=== PATIENT | male | born 1945 | race Caucasian/White ===

== ENCOUNTER 2020-01-01 07:47 | Day surgery (SDC) | payer OTHER, BC ==
[2019-12-31 15:18] VITALS: BMI 25.0
[2020-01-01 08:36] VITALS: TEMP 97.7
[2020-01-01] MEDS ORDERED: oxyCODONE HCL 5 MG TABLET PO PRN (10:34)
[2020-01-01] MEDS ORDERED: ONDANSETRON 4 MG/2 ML VIAL IVPUSH PRN (10:34)
[2020-01-01] MEDS ORDERED: MIDAZOLAM HCL 2 MG/2 ML SINGLE DOSE VIAL ONE (10:40)
[2020-01-01] MEDS ORDERED: LACTATED RINGERS SOLUTION 1,000 ML IV SCH (10:45)
[2020-01-01] MEDS ORDERED: LIDOCAINE HCL 2% (50ML VIAL) INF ONE (11:13)
[2020-01-01 12:32] VITALS: PULSE 72
[2020-01-01 12:36] VITALS: BP 134/75
--- NOTE | 2020-01-02 13:55 | HP ---
DATE OF ADMISSION: 01/01/2020 PREOPERATIVE DIAGNOSIS: Right carpal tunnel syndrome. POSTOPERATIVE DIAGNOSIS: Right carpal tunnel syndrome. OPERATIVE PROCEDURE: Right carpal tunnel release. ANESTHESIA: Local with sedation. COMPLICATIONS: None. ESTIMATED BLOOD LOSS: Minimal. INDICATION FOR PROCEDURE: The patient is a 74-year-old male with the above finding, indicated for operative treatment. Risks, benefits, and alternatives were discussed with the patient at length. Proper informed consent was obtained. PROCEDURE: After proper identification of the patient and the correct operative site, patient was brought to the operating room, placed supine on the operating table. All prominences were well padded. Sedation and local anesthesia were given. Right upper extremity was prepped and draped in usual sterile fashion. A well-padded tourniquet was placed as well as a sterile prep. Esmarch bandage to exsanguinate the right upper extremity. Tourniquet was inflated to 250 mmHg. A longitudinal incision was made in the proximal aspect of the palm. Incision was taken sharply through the skin with blunt and sharp dissection through the subcutaneous tissues. Palmar fascia was divided longitudinally. Transcarpal ligament along with the distal 4 cm of the antebrachial fascia were divided longitudinally under direct visualization with loupe magnification. This provided complete release of the median nerve at the wrist. Wound was repaired with 5-0 nylon suture. Sterile dressings were applied. Patient was brought to recovery room in stable condition. He tolerated the procedure well. EUSEBIO SAGE M.D. [id number]
== END 2020-01-01 12:15 | disposition home or self-care (01) ==
LOC: FASU 07:47
PROVIDERS: ATTEND Orthopaedic Surgery Hand Surgery
PROC: 01N50ZZ Release Median Nerve, Open Approach (ICD-10-PCS; principal; 2020-01-01 11:10)
DX: G56.01 Carpal tunnel syndrome, right upper limb (principal)